=== PATIENT | female | born 1950 | race Caucasian/White ===

== ENCOUNTER 2021-11-05 05:39 | Observation (INO) | payer BC, MEDICARE ==
[2021-10-29 12:09] LABS: BASOPHILS # (AUTO) 0.1 X10'3 (0-0.2); BASOPHILS % (AUTO) 1.1 % (0-1); EOSINOPHILS # (AUTO) 0.2 X10'3 (0-0.9); EOSINOPHILS % (AUTO) 4.1 % (0-6); LYMPHOCYTES # (AUTO) 1.6 X10'3 (1.1-4.8); LYMPHOCYTES % (AUTO) 27.5 % (21-51); MEAN CORPUSCULAR HEMOGLOBIN 30.1 PG (27.0-31.0); MEAN CORPUSCULAR HGB CONC 33.1 g/dL (33.0-36.5); MEAN PLATELET VOLUME 7.1 FL (7.4-10.4); MONOCYTES # (AUTO) 0.6 X10'3 (0-0.9); MONOCYTES % (AUTO) 10.2 % (2-12); NEUTROPHILS # (AUTO) 3.3 X10'3 (1.8-7.7); NEUTROPHILS % (AUTO) 57.1 % (42-75); PRE OP HEMOGLOBIN 13.6 g/dL (12.0-16.0); PRE OP PLATELET COUNT 319 X10'3 (140-440); RED BLOOD COUNT 4.51 X10'6 (4.20-5.60); RED CELL DISTRIBUTION WIDTH 12.8 % (11.5-14.5)
[2021-10-29 12:23] LABS: ALBUMIN 3.9 G/DL (3.4-5.0); ALBUMIN/GLOBULIN RATIO 1.1 (1.1-1.5); ALKALINE PHOSPHATASE 51 IU/L (46-116); BLOOD UREA NITROGEN 15 MG/DL (7-18); BUN/CREATININE RATIO 22.4 (6.6-38.0); CALCIUM 9.4 MG/DL (8.5-10.1); CHLORIDE 103 MMOL/L (99-107); CREATININE 0.67 MG/DL (0.40-0.90); PRE OP ALT 19 U/L (30-65); PRE OP ANION GAP 7 (8-16); PRE OP AST 14 U/L (10-37); PRE OP BILIRUB, TOTAL 0.7 MG/DL (0.0-1.0); PRE OP GLUCOSE 97 MG/DL (70-104); PRE OP POTASSIUM 4.4 MMOL/L (3.4-5.1); PRE OP SODIUM 138 MMOL/L (135-145); TOTAL CARBON DIOXIDE 28.3 MMOL/L (24-32); TOTAL PROTEIN 7.5 G/DL (6.4-8.2); eGFR 86 ML/MIN
[2021-11-05] VITALS (19 sets, daily range): BP systolic 112–152; BP diastolic 56–80
[~2021-11-05] VITALS: Ht 162.6 cm; Wt 65.7 kg
[~2021-11-05 05:39] MED LIST: BONE RESTORE; LEVO25TA2 PO; VITAMIN C; VITAMIN D3; acetaminophen 325mg tablet PO ONE; ceFAZolin inj. 2,000 MG in dextrose 5%-water 100 ML IV ONE; ceFOXitin 2GM-NS 100mL ADDvant 100 ML IV ONE; celeCOXIB 100mg capsule PO ONE; famotidine 20mg tablet PO ONE; gabapentin 300mg capsule PO ONE; phenazopyridine 100mg tablet PO ONE
[2021-11-05] MEDS: ringers solution, lacted 1,000 ML IV SCH ×4 (06:34→17:01)
[2021-11-05] MEDS ORDERED: LIDOcaine 1% 30ml preserv. free vial ONE (06:45)
[2021-11-05] MEDS ORDERED: clindamycin phosphate 40gm vag cream ONE (06:45)
[2021-11-05] MEDS ORDERED: epiNEPHrine 1 mg/ml inj ONE (06:45)
--- NOTE | 2021-11-05 06:57 | NUR ---
PATIENT PREPPED FOR SURGERY, PREOP TEACHING PERFORMED, QUESTIONS ANSWERED. IV STARTED WITHOUT DIFFICULTY, PRE OP MEDS GIVEN
[2021-11-05] MEDS ORDERED: midazolam 1 mg/ML 2ml injection ONE (07:22)
[2021-11-05] MEDS ORDERED: propofol inj 20 ML IV ONE (07:23)
[2021-11-05] MEDS ORDERED: fentaNYL /PF 50mcg/ml 5ml ampule ONE (07:23)
[2021-11-05] MEDS ORDERED: rocuronium 10mg/ml inj IV ONE (07:23)
[2021-11-05] MEDS ORDERED: morphine 4 MG/ML inj SYRINge IV PRN (07:30)
[2021-11-05] MEDS ORDERED: proCHLORperazine 10 MG/2 ml inj IV PRN (07:30)
[2021-11-05] MEDS ORDERED: meperidine/PF 25mg/ml syringe IV PRN ×3 (07:30)
[2021-11-05] MEDS ORDERED: morphine 2 MG/ML inj. syringe IV PRN ×2 (07:30→10:25)
[2021-11-05] MEDS ORDERED: ondansetron/PF 4mg/2ml inj IV PRN ×2 (07:30→10:25)
[2021-11-05] MEDS ORDERED: ringers solution, lacted 1,000 ML IV SCH (07:30)
[2021-11-05] MEDS ORDERED: sevoflurane 250ml liquid IH ONE (07:31)
[2021-11-05] MEDS ORDERED: ondansetron/PF 4mg/2ml inj ONE (07:31)
[2021-11-05] MEDS ORDERED: dexamethasone sod phosphate 4mg/ml inj. ONE (07:50)
[2021-11-05] MEDS ORDERED: acetaminophen 1,000mg/100ml IV 100 ML IV ONE (09:18)
[2021-11-05] MEDS ORDERED: normal saline 500ML IV soln IV PRN (10:25)
[2021-11-05] MEDS ORDERED: naloxone 0.4 mg/ml inj IV PRN (10:25)
[2021-11-05] MEDS ORDERED: oxyCODONE IR 5mg (immed. release) tablet PO PRN ×2 (10:25)
[2021-11-05] MEDS ORDERED: mag hydrox/Alum hydrox/simeth 30ml oral suspension PO PRN (10:25)
[2021-11-05] MEDS ORDERED: acetaminophen 325mg tablet PO PRN (10:25)
[2021-11-05] MEDS ORDERED: LORazepam 2 mg/ml vial IV PRN (10:25)
--- NOTE | 2021-11-05 10:32 | NUR ---
Received from OR via BED , accompanied by Anesthesiologist PATIENT WITH 10L MASK ON WITH 100% SATURATIONS. VSS. EUGENIO PAD AND VEGA CATHETER IN PLACE. PATIENT WITH SCDS ON, 20G PIV IN LEFT HAND RUNNING LR AT 100. Addendum: 11/05/21 at 1043 by Vasiliy Ramirez RN, RN Amended: Links added.
--- NOTE | 2021-11-05 11:32 | NUR ---
PATIENT HAS MET ALL CRITERIA FOR TRANSFER TO THE ORTHO FLOOR. VSS. DRESSINGS INTACT. BED LOW, CALL LIGHT PRESENT AND 2 RAILS UP. RN PRESENT TO ACCEPT CARE OF PATIENT AND REPORT HAS BEEN CALLED. ALL QUESTIONS ANSWERED TO ACCEPTING LYNETTE FRANCIS. Addendum: 11/05/21 at 1141 by Vasiliy Dangelo - LYNETTE RN Amended: Links added.
[2021-11-05] MEDS: simethicone 80mg chew tab PO SCH ×2 (13:05→16:59)
[2021-11-05] MEDS: ketorolac trometh. 30mg/ml inj. IV SCH ×2 (13:05→20:13)
--- NOTE | 2021-11-05 18:29 | NUR ---
Problems reprioritized. Patient report given, questions answered & plan of care reviewed with LYNETTE Gaffney.
--- NOTE | 2021-11-05 18:30 | NUR ---
Patient in room ORTHO 4012. I have received report from MONET OJEDA and had the opportunity to ask questions and assume patient care.
[2021-11-05] MEDS: docusate sod 100mg capsule PO SCH (20:12)
[2021-11-06 02:00] VITALS: BP 140/72
[2021-11-06] MEDS: ketorolac trometh. 30mg/ml inj. IV SCH ×2 (02:59→07:25)
[2021-11-06] MEDS: ringers solution, lacted 1,000 ML IV SCH (02:59)
[2021-11-06 06:30] VITALS: BP 133/77
--- NOTE | 2021-11-06 06:30 | NUR ---
Problems reprioritized. Patient report given, questions answered & plan of care reviewed with MONET OJEDA.
[2021-11-06 06:56] LABS: BASOPHILS % (AUTO) 0.1 % (0-1); EOSINOPHILS % (AUTO) 0 % (0-6); LYMPHOCYTES # (AUTO) 1.1 X10'3 (1.1-4.8); LYMPHOCYTES % (AUTO) 10.9 % (21-51); MEAN CORPUSCULAR HGB CONC 34.1 g/dL (33.0-36.5); MEAN CORPUSCULAR VOLUME 90.8 FL (78-98); MEAN PLATELET VOLUME 7.4 FL (7.4-10.4); MONOCYTES # (AUTO) 0.7 X10'3 (0-0.9); MONOCYTES % (AUTO) 7.1 % (2-12); NEUTROPHILS # (AUTO) 8.4 X10'3 (1.8-7.7); NEUTROPHILS % (AUTO) 81.9 % (42-75); PLATELET COUNT 251 X10'3 (140-440); RED BLOOD COUNT 3.86 X10'6 (4.20-5.60); RED CELL DISTRIBUTION WIDTH 12.7 % (11.5-14.5); WHITE BLOOD COUNT 10.3 X10'3 (4.5-11.0)
[2021-11-06 07:08] LABS: ALBUMIN 2.9 G/DL (3.4-5.0); ANION GAP 4 (8-16); BLOOD UREA NITROGEN 11 MG/DL (7-18); BUN/CREATININE RATIO 12.8 (6.6-38.0); CALCIUM 8.7 MG/DL (8.5-10.1); CHLORIDE 104 MMOL/L (99-107); CREATININE 0.86 MG/DL (0.40-0.90); GLUCOSE 114 MG/DL (70-104); POTASSIUM 4.2 MMOL/L (3.5-5.1); SODIUM 135 MMOL/L (135-145); TOTAL CARBON DIOXIDE 26.8 MMOL/L (24-32); eGFR 65 ML/MIN
[2021-11-06] MEDS: docusate sod 100mg capsule PO SCH (07:23)
[2021-11-06] MEDS: simethicone 80mg chew tab PO SCH (07:23)
--- NOTE | 2021-11-06 07:34 | NUR ---
patient voided 150 with a 100ml post void residual. MD at bedside. proceeding with DC.
--- NOTE | 2021-11-06 07:58 | NUR ---
Patient stable and appropriate for discharge home with . IV removed, all belongings taken from room. New RX and DC instructions given pre-op by MD. all questions answered.
[2021-11-06] MEDS ORDERED: levoTHYROXINE 25mcg tablet PO SCH (08:00)
== END 2021-11-06 07:45 | disposition home or self-care (01) ==
LOC: PRE-OP 05:39 → ORTHO 4S 10:29
PROVIDERS: ADMIT Obstetrics & Gynecology; ATTEND Obstetrics & Gynecology
DX: N81.2 Incomplete uterovaginal prolapse (principal); Z20.822 Contact with and (suspected) exposure to COVID-19; I25.2 Old myocardial infarction; Z79.899 Other long term (current) drug therapy
CPT/HCPCS: 36415; 56810; 57260; 58260; 80048; 80053; 82948; 85025; 86885; 86900; 86901; 87081; 93005; 96374; 96376; C1758; G0378; J0131; J0171; J0694; J1100; J1885; J2250; J2405; J2704; J3010; J3490; J7120; U0003; U0005; 88305; A4355; A4615; A4618; A7000